=== PATIENT | male | born 1985 | race Caucasian/White ===

== ENCOUNTER 2018-10-08 21:20 | Emergency (ER) | payer SELFPAY ==
[~2018-10-08] VITALS: Ht 182.9 cm; Wt 96.0 kg
[2018-10-09 01:57] LABS: BASOPHILS % 1.1 % (0.0-2.0); EOSINOPHILS % 0.3 % (0.0-5.0); HEMATOCRIT. 44.9 % (42.0-52.0); HEMOGLOBIN. 15.2 g/dL (14.0-18.0); LYMPHOCYTES % 21.7 % (20.0-50.0); MEAN CORPUSCULAR HEMOGLOBIN 31.9 pg (28.0-32.0); MEAN CORPUSCULAR VOLUME 94.1 fL (80.0-94.0); MEAN PLATELET VOLUME 8.9 fl (7.4-10.4); MONOCYTES % 7.5 % (2.0-8.0); NEUTROPHILS % 69.4 % (40.0-76.0); PLATELET 336 x1000/uL (130-400); RED BLOOD CELL COUNT 4.77 mill/uL (4.7-6.1); RED CELL DISTRIBUTION WIDTH 12.7 % (11.6-14.6)
[2018-10-09 02:03] LABS: CHLORIDE 107 mEq/L (98-107)
[2018-10-09 03:04] VITALS: BP 120/69
== END 2018-10-09 03:07 | disposition home or self-care (01) ==
LOC: ER 21:20
DX: R00.2 Palpitations (principal); R03.0 Elevated blood-pressure reading, without diagnosis of hypertension; F12.90 Cannabis use, unspecified, uncomplicated
CPT/HCPCS: 36415; 71045; 80048; 93005; 99284